=== PATIENT | female | born 1950 | race Caucasian/White ===

== ENCOUNTER 2016-10-06 08:41 | Emergency (ER) | payer MEDICARE, OTHER ==
[2016-10-06 08:52] VITALS: BP 148/86
[2016-10-06] MEDS ORDERED: Lidocaine 2% Jelly 10 ML Urojet ONE (09:07)
[2016-10-06] MEDS ORDERED: Lidocaine 2% Jelly 10 ML Urojet MUCMEM ONE (09:15)
--- NOTE | 2016-10-06 09:30 | EDM.PDOC ---
ED HPI GENERAL MEDICAL PROBLEM - General Chief Complaint: Gastrointestinal Problem Stated Complaint: CONSTIPATION AND BLOOD IN STOOL Time Seen by Provider: 10/06/16 08:54 Source of Information: Reports: Patient, Family, RN Notes Reviewed - History of Present Illness INITIAL COMMENTS - FREE TEXT/NARRATIVE: 66-year-old lady comes in with constipation difficulty. She's not had a BM for 2 or 3 days. She did use a suppository this morning and then her did try to help her with a fleets with very minimal results. She did have surgery about a month ago for ovarian cancer. She is on chemotherapy. She states she is eating and drinking okay but likely not as well as usual. No abdominal pain or cramping. No nausea or vomiting. Does feel rectal pressure and the need to go but just unable to get it done. She is been taking occasional pain pills but not frequently. Rectal Pain Score (Numeric/FACES): 8 - Related Data Allergies Allergy/AdvReac Type Severity Reaction Status Date / Time No Known Allergies Allergy Verified 10/06/16 08:52 Home Meds: Home Meds Atenolol 25 mg PO DAILY 07/23/14 [History] Sertraline [Zoloft] 25 mg PO DAILY 07/23/14 [History] Ondansetron [Zofran ODT] 4 mg PO Q6H PRN #2 tab.dis 07/24/14 [Rx] Ondansetron [Zofran ODT] 4 mg PO Q6H PRN #4 tab.dis 07/24/14 [Rx] Sennosides [Senna] 8.6 mg PO DAILY PRN 10/06/16 [History] Past Medical History Cardiovascular History: Reports: Hypertension Respiratory History: Reports: Other (See Below) Other Respiratory History: pneumonia history Gastrointestinal History: Reports: Chronic Constipation 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: Oncologic (Cancer) History: Reports: Colon - Past Surgical History Cardiovascular Surgical History: Reports: None Oncologic Surgical History: Reports: Other (See Below) Other Oncologic Surgeries/Procedures: ovarian lining and partial bladder removal Social & Family History - Tobacco Use Smoking Status *Q: Never Smoker Second Hand Smoke Exposure: No - Caffeine Use Caffeine Use: Reports: Coffee - Alcohol Use Days Per Week of Alcohol Use: 0 - Recreational Drug Use Recreational Drug Use: No ED ROS GENERAL - Review of Systems Review Of Systems: See Below Constitutional: Denies: Fever, Chills, Diaphoresis HEENT: Denies: Throat Pain Respiratory: Denies: Shortness of Breath, Wheezing, Pleuritic Chest Pain Cardiovascular: Denies: Chest Pain GI/Abdominal: Reports: Constipation. Denies: Abdominal Pain, Nausea, Vomiting Musculoskeletal: Reports: No Symptoms Skin: Reports: No Symptoms Neurological: Reports: No Symptoms ED EXAM, GI/ABD - Physical Exam Exam: See Below General Appearance: Alert, No Apparent Distress Throat/Mouth: Normal Inspection, Normal Oropharynx Head: Atraumatic. No: Facial Swelling Neck: Supple, Full Range of Motion Respiratory/Chest: No Respiratory Distress, Lungs Clear, Normal Breath Sounds Cardiovascular: Tachycardia GI/Abdominal: Soft, Non-Tender, Other (Vertical incision visible, well-healed, no mass palpable). No: Guarding Rectal (Female) Exam: Fecal Impaction (On rectal exam there is a large amount of firm brown stool in the rectum no visible external hemorrhoid, no blood at this time) Extremities: No: Pedal Edema Neurological: Alert, Oriented, No Motor/Sensory Deficits Course - Vital Signs Last Recorded V/S: Last Vital Signs Temp 96.4 F 10/06/16 08:49 Pulse 101 H 10/06/16 08:49 Resp 18 10/06/16 08:49 BP 148/86 H 10/06/16 08:49 Pulse Ox 100 10/06/16 08:49 - Orders/Labs/Meds Orders: Active Orders 24 hr Category Date Time Status Enema [RC] ASDIRECTED Care 10/06/16 09:15 Active Meds: Medications Discontinued Medications Generic Name Dose Route Start Last Admin Trade Name Jay PRN Reason Stop Dose Admin Lidocaine HCl Confirm 10/06/16 09:07 Xylocaine 2% Jelly Administered 10/06/16 09:08 Dose 10 ml .ROUTE .STK-MED ONE - Re-Assessments/Exams Free Text/Narrative Re-Assessment/Exam: 10/06/16 10:13 Good results from some digital extraction and soapsuds enema Departure - Departure Time of Disposition: 10:14 Disposition: Home, Self-Care 01 Condition: Fair Clinical Impression: Constipation - Discharge Information Forms: ED Department Discharge Additional Instructions: Stool softener at least once or twice daily, consider MiraLAX as needed. Prunes or prune juice as needed, drink plenty of water. High-fiber diet as best you can. Follow-up clinic as needed, return to ED as needed - My Orders Last 24 Hours: My Active Orders 10/06/16 09:15 Enema [RC] ASDIRECTED - Assessment/Plan Last 24 Hours: My Active Orders 10/06/16 09:15 Enema [RC] ASDIRECTED
== END 2016-10-06 10:25 | disposition home or self-care (01) ==
LOC: JD.ED 08:41
DX: K59.00 Constipation, unspecified (principal); Z90.6 Acquired absence of other parts of urinary tract; Z79.899 Other long term (current) drug therapy
CPT/HCPCS: 99283

== ENCOUNTER 2016-12-02 10:22 | Emergency (ER) | payer MEDICARE, OTHER ==
[2016-12-02 10:40] VITALS: BP 131/77
--- NOTE | 2016-12-02 10:44 | EDM.PDOC ---
ED HPI GENERAL MEDICAL PROBLEM - General Chief Complaint: Cardiovascular Problem Stated Complaint: HIGH PULSE RATE, SHAKEY Time Seen by Provider: 12/02/16 10:43 - History of Present Illness INITIAL COMMENTS - FREE TEXT/NARRATIVE: 66-year-old female presents emergency room with shakiness and a rapid pulse. Patient received chemotherapy on and she often does this after getting her chemotherapy. Usually she gets treated in the clinic for this however they delayed her chemotherapy from Saturday to because of decreased counts. Patient denies any nausea vomiting and really has no pain at this time she denies fevers or chills and does not feel sick or ill. Patient is treated for primary peritoneal carcinoma she had a successful debulking the affected pelvic structures and bladder. 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: Psychiatric History: Reports: Dementia Oncologic (Cancer) History: Reports: Colon - Past Surgical History Cardiovascular Surgical History: Reports: None GI Surgical History: Reports: Colonoscopy Female Surgical History: Reports: Hysterectomy, Oophorectomy Oncologic Surgical History: Reports: Other (See Below) Other Oncologic Surgeries/Procedures: ovarian lining and partial bladder removal Social & Family History - Tobacco Use Smoking Status *Q: Never Smoker Second Hand Smoke Exposure: No - Caffeine Use Caffeine Use: Reports: Coffee - Alcohol Use Days Per Week of Alcohol Use: 0 - Recreational Drug Use Recreational Drug Use: No ED ROS GENERAL - Review of Systems Review Of Systems: See Below Constitutional: Denies: Fever, Chills HEENT: Reports: No Symptoms Respiratory: Reports: No Symptoms Cardiovascular: Reports: No Symptoms GI/Abdominal: Reports: No Symptoms : Reports: No Symptoms ED EXAM, GENERAL - Physical Exam Exam: See Below Exam Limited By: No Limitations General Appearance: Alert, No Apparent Distress, Other (Vital signs stable afebrile other than her pulse being slightly elevated at 109 this was down to 105 during the initial evaluation) Respiratory/Chest: No Respiratory Distress, Lungs Clear, Normal Breath Sounds Cardiovascular: Regular Rate, Rhythm, No Edema, No Murmur GI/Abdominal: Normal Bowel Sounds, Soft, Non-Tender Course - Vital Signs Last Recorded V/S: Last Vital Signs Temp 36.4 C 12/02/16 10:31 Pulse 109 H 12/02/16 10:31 Resp 18 12/02/16 10:31 BP 131/77 12/02/16 10:31 Pulse Ox 97 12/02/16 10:31 - Orders/Labs/Meds Labs: Laboratory Tests 12/02/16 12/02/16 Range/Units 11:30 11:30 WBC 2.78 L (3.98-10.04) K/mm3 RBC 3.52 L (3.98-5.22) M/mm3 Hgb 11.4 (11.2-15.7) gm/L Hct 34.3 (34.1-44.9) % MCV 97.4 H (79.4-94.8) fl MCH 32.4 H (25.6-32.2) pg MCHC 33.2 (32.2-35.5) g/dl RDW Std Deviation 61.7 H (36.4-46.3) fL Plt Count 94 L (182-369) K/mm3 MPV 10.1 (9.4-12.3) fl Neutrophils % (Manual) 86 H (40-60) % Band Neutrophils % 0 (0-10) % Lymphocytes % (Manual) 12 L (20-40) % Atypical Lymphs % 0 % Monocytes % (Manual) 2 (2-10) % Eosinophils % (Manual) 0 L (0.7-5.8) % Basophils % (Manual) 0 L (0.1-1.2) Platelet Estimate Decreased Hypochromasia 1+ slight Anisocytosis 2+ moderate RBC Morph Comment Abnormal Sodium 138 (136-145) mEq/L Potassium 3.7 (3.5-5.1) mEq/L Chloride 102 (98-107) mEq/L Carbon Dioxide 27 (21-32) mEq/L Anion Gap 12.7 (5-15) BUN 11 (7-18) mg/dL Creatinine 0.6 (0.55-1.02) mg/dL Est Cr Clr Drug Dosing 78.98 mL/min Estimated GFR (MDRD) > 60 (>60) mL/min BUN/Creatinine Ratio 18.3 H (14-18) Glucose 147 H (80-115) mg/dL Calcium 8.9 (8.5-10.1) mg/dL Total Bilirubin 0.7 (0.2-1.0) mg/dL AST 14 L (15-37) U/L ALT 21 (14-59) U/L Alkaline Phosphatase 48 (46-116) U/L Total Protein 6.7 (6.4-8.2) g/dl Albumin 3.8 (3.4-5.0) g/dl Globulin 2.9 gm/dL Albumin/Globulin Ratio 1.3 (1-2) Meds: Medications Discontinued Medications Generic Name Dose Route Start Last Admin Trade Name Freq PRN Reason Stop Dose Admin Heparin Sodium (Porcine) Confirm 12/02/16 12:47 Heparin Lock Flush 100 Units/Ml Administered 12/02/16 12:48 Dose 500 units .ROUTE .STK-MED ONE Lactated Ringer's 1,000 mls @ 999 mls/hr 12/02/16 10:57 12/02/16 11:35 Ringers, Lactated IV 12/02/16 11:57 999 mls/hr .BOLUS ONE Administration - Re-Assessments/Exams Free Text/Narrative Re-Assessment/Exam: 12/02/16 11:56 Patient's case discussed with , who agrees patient should receive some fluids. The patient is currently receiving Taxol regimen. We will also check a CBC and a CMP. 12/02/16 12:53 Patient is doing much better after receiving a liter fluid we will discharge home at this point her white count is 2700 this is good for her her platelet count is 94,000. Departure - Departure Time of Disposition: 12:53 Disposition: Home, Self-Care 01 Clinical Impression: Dehydration Referrals: Juaniat Hernandez, WEIGHT LOSS SALES CONSULTANT [Primary Care Provider] - Forms: ED Department Discharge Additional Instructions: Return to the emergency room with any questions or problems. Follow-up with your providers as scheduled
[2016-12-02] MEDS ORDERED: Lactated Ringers 1,000 ML IV ONE (10:57)
== END 2016-12-02 13:13 | disposition home or self-care (01) ==
LOC: JD.ED 10:22
DX: E86.0 Dehydration (principal); I10 Essential (primary) hypertension; F03.90 Unspecified dementia, unspecified severity, without behavioral disturbance, psychotic disturbance, mood disturbance, and anxiety; Z90.710 Acquired absence of both cervix and uterus
CPT/HCPCS: 36415; 36591; 80053; 85025; 96360; 99285; J1642; J7120; 99284

== ENCOUNTER 2018-05-02 14:36 | Emergency (ER) | payer MEDICARE, OTHER ==
[2018-05-02 15:00] VITALS: BP 128/62
--- NOTE | 2018-05-02 17:30 | EDM.PDOC ---
ED HPI GENERAL MEDICAL PROBLEM - General Chief Complaint: General Stated Complaint: SWELLING ON SIDE AFTER SURGERY Time Seen by Provider: 05/02/18 15:22 Source of Information: Reports: Patient, RN Notes Reviewed - History of Present Illness INITIAL COMMENTS - FREE TEXT/NARRATIVE: 67 year old female brought her by her . She was just released from [facility] yesterday afternoon. She has has hx of ovarian cancer, metastatic to lung wit pleural effusion, R sided pneumothorax. He is concerned about swelling and bruising R mid low back. She had a lung procedure done about 8 days ago to treat chronic pleural effusion, recurrent R pneumothorax. They states she had 2 chest tubes recently removed. No fever or chills today. Not having much chest or back pain, does not currently feel short of breath. No current abd pain, nausea or vomiting. Right Incisional Pain Score (Numeric/FACES): 8 - Related Data Allergies Allergy/AdvReac Type Severity Reaction Status Date / Time No Known Allergies Allergy Verified 08/06/17 12:58 Home Meds: Home Meds Sertraline [Zoloft] 75 mg PO DAILY 07/23/14 [History] Prochlorperazine [Compazine] 10 mg PO QID PRN 08/06/17 [History] Acetaminophen/HYDROcodone [[place] 325-5 MG] 1 tab PO Q6H PRN 05/02/18 [History] LORazepam [Ativan] 0.5 mg PO Q8H PRN 05/02/18 [History] Omeprazole 20 mg PO DAILY 05/02/18 [History] Ondansetron [Zofran ODT] 8 mg PO Q6H PRN 05/02/18 [History] Sennosides [Senna] 8.6 mg PO ASDIRECTED PRN 05/02/18 [History] Past Medical History Cardiovascular History: Reports: Hypertension Respiratory History: Reports: Pneumonia, Recurrent, Other (See Below) Other Respiratory History: pneumonia history;pleural effusion with chest tube procedure in [place] Gastrointestinal History: Reports: Chronic Constipation 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: Psychiatric History: Reports: Dementia Oncologic (Cancer) History: Reports: Colon - Past Surgical History Cardiovascular Surgical History: Reports: None GI Surgical History: Reports: Colonoscopy, Hernia, Abdominal, Other (See Below) Other GI Surgeries/Procedures: repair of hernia Female Surgical History: Reports: Hysterectomy, Oophorectomy Oncologic Surgical History: Reports: Other (See Below) Other Oncologic Surgeries/Procedures: ovarian lining and partial bladder removal Social & Family History - Tobacco Use Smoking Status *Q: Never Smoker - Caffeine Use Caffeine Use: Reports: Coffee, Soda, Tea - Recreational Drug Use Recreational Drug Use: No - Living Situation & Occupation Living situation: Reports: Occupation: Retired ED ROS GENERAL - Review of Systems Review Of Systems: See Below Constitutional: Denies: Fever, Chills, Diaphoresis HEENT: Reports: No Symptoms Respiratory: Denies: Shortness of Breath (not short of breath at rest) Cardiovascular: Reports: Chest Pain (mild R sided discomfort) GI/Abdominal: Denies: Abdominal Pain, Vomiting Musculoskeletal: Reports: Back Pain (mild R back discomfort) Skin: Reports: Bruising (large area of bruising R low back) Neurological: Reports: Dizziness (mild when standing and walking) ED EXAM, GENERAL - Physical Exam Exam: See Below General Appearance: Alert, No Apparent Distress Eye Exam: Bilateral Eye: PERRL Throat/Mouth: Normal Inspection Head: Atraumatic. No: Facial Swelling Respiratory/Chest: No Respiratory Distress, Lungs Clear, Decreased Breath Sounds (R base) Cardiovascular: Regular Rate, Rhythm GI/Abdominal: Soft, Non-Tender. No: Guarding Back Exam: Other (large bruise R low back, there is swelling of the R mid to mid lower back with some crepitus palpable) Extremities: Normal Inspection. No: Pedal Edema, Leg Pain Neurological: Alert, Oriented, No Motor/Sensory Deficits Skin Exam: Warm, Dry, Normal Color Course - Vital Signs Last Recorded V/S: Last Vital Signs Temp 98.0 F 05/02/18 14:57 Pulse 79 05/02/18 14:57 Resp 20 05/02/18 14:57 BP 128/62 05/02/18 14:57 Pulse Ox 95 05/02/18 14:57 - Orders/Labs/Meds Labs: Laboratory Tests 05/02/18 Range/Units 15:45 WBC 8.03 (3.98-10.04) K/mm3 RBC 3.51 L (3.98-5.22) M/mm3 Hgb 11.2 (11.2-15.7) gm/L Hct 34.9 (34.1-44.9) % MCV 99.4 H (79.4-94.8) fl MCH 31.9 (25.6-32.2) pg MCHC 32.1 L (32.2-35.5) g/dl RDW Std Deviation 72.9 H (36.4-46.3) fL Plt Count 174 L (182-369) K/mm3 MPV 9.3 L (9.4-12.3) fl Neut % (Auto) 87.6 H (34.0-71.1) % Lymph % (Auto) 3.2 L (19.3-51.7) % Z[place] % (Auto) 8.0 (4.7-12.5) % Eos % (Auto) 0.6 L (0.7-5.8) Baso % (Auto) 0.1 (0.1-1.2) % Neut # (Auto) 7.03 H (1.56-6.13) K/mm3 Lymph # (Auto) 0.26 L (1.18-3.74) K/mm3 [place] # (Auto) 0.64 H (0.24-0.36) K/mm3 Eos # (Auto) 0.05 (0.04-0.36) K/mm3 Baso # (Auto) 0.01 (0.01-0.08) K/mm3 Manual Slide Review Abnormal smear - Re-Assessments/Exams Free Text/Narrative Re-Assessment/Exam: 05/04/18 13:11 CXR showed R lower lobe pneumothorax. I did discuss this with her Surgeon Dr Lock, [place]. He state the pneumothorax was present at time of discharge yesterday afternoon, states bruising, R lower back, swelling, crepitus also present. He is satisfied that her vitals are stable, that she is in no resp. distress. Patient had no current follow up plan. Discussed options with patient and her , she should have close follow up early next week, discharge instr. as documented. Departure - Departure Time of Disposition: 17:50 Disposition: Home, Self-Care 01 Condition: Fair Clinical Impression: Traumatic hematoma of lower back Qualifiers: Encounter type: subsequent encounter Qualified Code(s): S30.0XXD - Contusion of lower back and pelvis, subsequent encounter Pneumothorax Qualifiers: Pneumothorax type: unspecified pneumothorax Qualified Code(s): J93.9 - Pneumothorax, unspecified Subcutaneous emphysema Qualifiers: Encounter type: initial encounter Qualified Code(s): T79.7XXA - Traumatic subcutaneous emphysema, initial encounter - Discharge Information Instructions: Pneumothorax Referrals: Jonn Rosales MD [Primary Care Provider] - Forms: ED Department Discharge Additional Instructions: Drink plenty of water to maintain hydration, continue with the boost supplement , try eat regular meals and snacks as best you can, continue with deep breathing , pulmonary exercise as previously instructed. See Dr. Rosales or one of our local medical providers next week for recheck. Call Saturday morning for appointment. Return to ED as needed if symptoms worsening in any way.
--- NOTE | 2018-05-03 15:36 | CR ---
Chest: Portable view of the chest was obtained. Comparison: Prior chest x-ray of 08/06/17. Large right sided pneumothorax is seen. Diffuse subcutaneous air seen within the right chest. Heart is within normal limits for portable technique. Tortuous thoracic aorta is noted. Right-sided infusion port is seen. No gross bony abnormality is appreciated. Surgical clips are seen within the left upper abdomen. Impression: 1. Large right-sided pneumothorax. Extensive subcutaneous air within the right chest. 2. Other incidental findings. Diagnostic code #5
== END 2018-05-02 18:00 | disposition home or self-care (01) ==
LOC: JD.ED 14:36
DX: T79.7XXA Traumatic subcutaneous emphysema, initial encounter (principal); S30.0XXD Contusion of lower back and pelvis, subsequent encounter; J93.9 Pneumothorax, unspecified; I10 Essential (primary) hypertension; C56.9 Malignant neoplasm of unspecified ovary; C78.00 Secondary malignant neoplasm of unspecified lung; Z79.899 Other long term (current) drug therapy; X58.XXXA Exposure to other specified factors, initial encounter; Z98.890 Other specified postprocedural states
CPT/HCPCS: 36415; 71045; 71045-26; 85025; 99283; 99284

== ENCOUNTER 2018-12-10 15:19 | Emergency (ER) | payer MEDICARE, OTHER ==
[2018-12-10] MEDS ORDERED: Misoprostol 200 MCG Tab PO ONE (15:57)
--- NOTE | 2018-12-10 16:02 | EDM.PDOC ---
ED HPI GENERAL MEDICAL PROBLEM - General Chief Complaint: Respiratory Problem Stated Complaint: SOB Time Seen by Provider: 12/10/18 15:29 Source of Information: Reports: Patient History Limitations: Reports: No Limitations - History of Present Illness INITIAL COMMENTS - FREE TEXT/NARRATIVE: The patient presents with shortness of breath. She has a history of ovarian cancer that has metastasized. She has a pleural effusion in her right lung and her lung is partially collapsed. She had a thorocentesis done last Saturday in [place]. She has shortness of breath all the time. It is worse today. She has been trying to ge oxygen for at home but no one will help her. She has no fever, chills, cough, chest pain, or abdominal pain. She is going to see her doctor next week in [place]. Onset: Gradual Duration: Week(s): Severity: Moderate Improves with: Reports: None Worsens with: Reports: None Associated Symptoms: Reports: Shortness of Breath. Denies: Chest Pain, Cough, Fever/Chills, Headaches, Nausea/Vomiting - Related Data Allergies Allergy/AdvReac Type Severity Reaction Status Date / Time No Known Allergies Allergy Verified 12/10/18 15:36 Home Meds: Home Meds Acetaminophen/HYDROcodone [[place] 325-5 MG] 1 tab PO Q6H PRN 05/02/18 [History] LORazepam [Ativan] 0.5 mg PO Q8H PRN 05/02/18 [History] Omeprazole 20 mg PO DAILY 05/02/18 [History] Ondansetron [Zofran ODT] 8 mg PO Q6H PRN 05/02/18 [History] Sennosides [Senna] 8.6 mg PO DAILY 05/02/18 [History] Past Medical History Cardiovascular History: Reports: Hypertension Respiratory History: Reports: Pneumonia, Recurrent, Other (See Below) Other Respiratory History: pneumonia history;pleural effusion with chest tube procedure in [place] Gastrointestinal History: Reports: Chronic Constipation 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: Psychiatric History: Reports: Dementia Oncologic (Cancer) History: Reports: Cervix - Past Surgical History Cardiovascular Surgical History: Reports: None Respiratory Surgical History: Reports: Thoracentesis, Other (See Below) Other Respiratory Surgeries/Procedures: pleural sac fusion GI Surgical History: Reports: Colonoscopy, Hernia, Abdominal, Other (See Below) Other GI Surgeries/Procedures: repair of hernia Female Surgical History: Reports: Hysterectomy, Oophorectomy Oncologic Surgical History: Reports: Other (See Below) Other Oncologic Surgeries/Procedures: ovarian lining and partial bladder removal Social & Family History - Tobacco Use Smoking Status *Q: Never Smoker Second Hand Smoke Exposure: Yes - Caffeine Use Caffeine Use: Reports: Coffee, Tea - Recreational Drug Use Recreational Drug Use: No - Living Situation & Occupation Living situation: Reports: Occupation: Retired ED ROS GENERAL - Review of Systems Review Of Systems: See Below Constitutional: Reports: No Symptoms HEENT: Reports: No Symptoms Respiratory: Reports: Shortness of Breath. Denies: Cough Cardiovascular: Reports: No Symptoms Endocrine: Reports: No Symptoms GI/Abdominal: Reports: No Symptoms : Reports: No Symptoms Musculoskeletal: Reports: No Symptoms ED EXAM, GENERAL - Physical Exam Exam: See Below Exam Limited By: No Limitations General Appearance: Alert, No Apparent Distress Ears: Normal External Exam Nose: Normal Inspection Head: Atraumatic, Normocephalic Neck: Normal Inspection Respiratory/Chest: No Respiratory Distress, Decreased Breath Sounds (Right lung) Cardiovascular: Regular Rate, Rhythm, No Edema, No Murmur GI/Abdominal: Soft, Non-Tender, No Organomegaly, No Mass Course - Vital Signs Last Recorded V/S: Last Vital Signs Temp 98 F 12/10/18 15:31 Pulse 106 H 12/10/18 15:31 Resp 20 12/10/18 15:31 BP 139/77 12/10/18 15:31 Pulse Ox 93 L 12/10/18 15:31 - Orders/Labs/Meds Meds: Medications Discontinued Medications Generic Name Dose Route Start Last Admin Trade Name Jay PRN Reason Stop Dose Admin Misoprostol 600 mcg 12/10/18 15:57 12/10/18 16:25 Cytotec PO 12/10/18 15:58 Not Given ONETIME ONE - Re-Assessments/Exams Free Text/Narrative Re-Assessment/Exam: 12/10/18 16:58 On 2L of oxygen her saturations came up to the mid 90s. I will get her some oxygen. I called [facility] rehab and they came to give her some oxygen. Departure - Departure Time of Disposition: 17:00 Disposition: Home, Self-Care 01 Condition: Good Clinical Impression: Pleural effusion, Shortness of breath - Discharge Information *PRESCRIPTION DRUG MONITORING PROGRAM REVIEWED*: No *COPY OF PRESCRIPTION DRUG MONITORING REPORT IN PATIENT ADRIAN: No Referrals: Elizabeth Hughes MD [Primary Care Provider] - 1 Week Forms: ED Department Discharge Additional Instructions: Use the oxygen continuously at first and then you can use if with exertion and sleeping. Follow up with your doctor. Please return if you are worse.
[2018-12-10 18:04] VITALS: BP 92/62
== END 2018-12-10 17:25 | disposition home or self-care (01) ==
LOC: JD.ED 15:19
DX: J90 Pleural effusion, not elsewhere classified (principal); I10 Essential (primary) hypertension; F03.90 Unspecified dementia, unspecified severity, without behavioral disturbance, psychotic disturbance, mood disturbance, and anxiety; Z87.09 Personal history of other diseases of the respiratory system; Z77.22 Contact with and (suspected) exposure to environmental tobacco smoke (acute) (chronic); Z79.899 Other long term (current) drug therapy
CPT/HCPCS: 99284